=== PATIENT | female | born 2000 | race Hispanic/Latino ===

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

== ENCOUNTER 2019-03-04 20:04 | Emergency (ER) | payer OTHER ==
--- OUTSIDE RECORDS SUMMARY | 2019-03-04 20:12 | XMS REPORT | Continuity of Care Document ---
:2000 Author Organization Interface Problems Problem Status Onset Classification Date Comments Source Date Reported PELVIS FX Active [address] Hernia repair Resolved Problem 04/10/2016 [facility] FRACTURE OF Active [facility] UNSPECIFIED Medical PART OF BODY OF [place] Medications Medication Details Route Status Patient Ordering Order Source Instructions Provider Date Acetaminophen 1 tab, PO, Q6H, Active 04/07[facility] 325 MG / PRN Pain Score 2015 Medical Hydrocodone 6-10, # 40 tab, [place] Bitartrate 7.5 0 Refill(s) MG Oral Tablet [[place] 7.5/325] POLYETHYLENE 17 gm, PO, No Longer 04/07[facility] GLYCOL 3350 142 Daily, # 255 Active 2015 Medical MG/ML Oral gm, 0 Refill(s) Center Solution [Miralax] 0.4 ML 40 mg, SUB-Q, Active 04/07[facility] Enoxaparin Daily, X 7 day, 2015 Medical sodium 100 # 7 ea, 0 Center MG/ML Prefilled Refill(s) Syringe [Lovenox] Docusate Sodium 50 mg, 1 cap, No Longer 04/07[facility] 50 MG Oral Route: PO, Drug Active 2015 Medical Capsule form: CAP, BID, Center [Colace] Dosing Weight 53.7, kg, Start date: 04/06/16 21:00:00 CDT, Duration: 30 day, Stop date: 05/06/16 9:00:00 CDT, Pediatric DosingNotes: (Same as: Colace) (Do Not Crush) Flexeril 5 mg, 0.5 tab, No Longer 04/06[facility] Route: PO, Drug Active 2015 Medical form: TAB, BID, Center Dosing Weight 53.7, kg, Start date: 04/06/16 15:00:00 CDT, Duration: 30 day, Stop date: 05/06/16 9:00:00 CDTNotes: (Same As: Flexeril) Lovenox 40 mg, 0.4 mL, No Longer 07/19[facility] Route: SUB-Q, Active 2015 Medical Drug form: INJ, Center [id number], Dosing Weight 53.7, kg, Start date: 04/06/16 15:00:00 CDT, Duration: 30 day, Stop date: 05/05/16 15:00:00 CDT, > 45 kg; Prophylaxis dose; Pediatric DosingNotes: (Same as: Lovenox) Acetaminophen 1 tab, Route: No Longer [place] 325 MG / PO, Drug Form: Active 2016 Medical Hydrocodone TAB, Dosing Center Bitartrate 7.5 Weight 53.7, MG Oral Tablet kg, Q4H, PRN [[place] 7.5/325] Pain Score 4-6, Start date: 04/06/16 13:48:00 CDT, Duration: 30 day, Stop date: 05/06/16 13:47:00 CDT, > 38 kg; Pediatric DosingNotes: Same as [place] 325-7.5mg Do not exceed 4gm/day of acetaminophen. Morphine 2 mg, 1 mL, Inactive [place] Route: IV, Drug 2015 Medical form: INJ, Center ONCE, Dosing Weight 53.7, kg, PRN Pain Score 7-10, Start date: 04/05/16 1:18:00 CDT, Stop date: 05/05/16 1:17:00 CDT, > 20 kg; Pediatric DosingNotes: (Same as:MORPhine Sulfate) Morphine 2 mg, Route: Inactive [facility] IV, Drug form: 2015 Medical INJ, [...] Acetaminophen 650 mg, 65 mL, No Longer [facility] 10 MG/ML Route: IV, Drug Active [...] + KCL 1,000 mL, Rate: No Longer [place] 20mEq/L 1000ml 94 ml/hr, Active 2015 Medical (Premix) 1,000 Infuse over: Center mL 10.6 hr, Route: IV, Dosing Weight 53.7 kg, Total Volume: 1,000, Start date: 04/04/16 23:17:00 CDT, Duration: 30 day, Stop date: 05/04/16 23:16:00 CDTNotes: PREMIX IV - Do Not Alter WASTE: F/P - Sink; E - [employer]ash [employer] Tylenol 650 mg, 65 mL, Inactive [facility] Route: IV, Drug 2015 Medical form: INJ, Q6H, Center Dosing Weight 53.7, kg, PRN Pain 1-3/Temp > 100.4 F, Start date: 04/04/16 23:16:00 CDT, Duration: 30 day, Stop date: 05/04/16 23:15:00 CDTNotes: Infuse over 15 minutes Do not exceed 4gm/day of acetaminophen MEDICATION WASTE Product Size: 1000 mg Product Wasted: ___ mg Morphine 2 mg, 1 mL, Inactive [facility] Route: IVP, 2015 Medical Drug form: INJ, Center ONCE, Dosing Weight 53.7, kg, Priority: STAT, Start date: 04/04/16 17:16:00 CDT, Stop date: 04/04/16 17:16:00 CDTNotes: (Same as:MORPhine Sulfate) Morphine 1 mg, 0.5 mL, Inactive [facility] Route: IV, Drug 2015 Medical form: INJ, Center ONCE, Dosing Weight 53.7, kg, Start date: 04/04/16 14:57:00 CDT, Stop date: 04/04/16 14:57:00 CDTNotes: (Same as:MORPhine Sulfate) Morphine 1 mg, 0.5 mL, Inactive [place] Route: IV, Drug 2015 Medical form: INJ, Center ONCE, Dosing Weight 53.7, kg, Start date: 04/04/16 10:47:00 CDT, Stop date: 04/04/16 10:47:00 CDTNotes: (Same as:MORPhine Sulfate) Sodium Chloride 1,000 mL, 1000 Inactive [place] 0.154 MEQ/ML ml/hr, Infuse 2015 Medical Injectable Over: 1 hr, [place] Solution Route: IV, 1,000, Drug form: INJ, [...] 3 EXAM: XR PELVIS 3 VIEWS 04/06 [facility] views DX views - [facility] This report was dictated by a Laser Engineer/Fellow. I have personally reviewed the images as [...] # 0.7 K/CMM 0.0 - 0.8 04/05 [facility] HEMATOLOGY Eosinophils 0.1 K/CMM 0.0 - 0.5 04/05 [place] /2015 [facility] HEMATOLOGY Lymphocytes 1.5 K/CMM 1.0 - 5.5 04/05 [facility] HEMATOLOGY Eosinophils 0.8 % 0.0 - 4.0 04/05 [facility] HEMATOLOGY Monocytes 8.6 % 2.0 - 12.0 04/05 [facility] HEMATOLOGY Segs-Bands # 5.8 K/CMM 1.5 - 8.1 04/05 [facility] HEMATOLOGY Basophils 0.4 % 0.0 - 1.0 04/05 [facility] HEMATOLOGY Segs 71.9 % 45.0 - 04/05 [facility] 75.0 [facility] HEMATOLOGY Lymphocytes 18.3 % 20.0 - 04/05 [place] 40.0 [facility] HEMATOLOGY MPV 10.2 fL 7.4 - 10.4 04/05 [facility] HEMATOLOGY Platelet 147 K/CMM 133 - 450 04/05 [facility] HEMATOLOGY RDW 12.0 % 11.5 - 04/05 [place] 14.5 [facility] HEMATOLOGY MCV 90.4 fL 80.0 - 04/05 [facility] 98.0 [facility] HEMATOLOGY MCH 31.2 pg 27.0 - 04/05 [facility] 31.0 [facility] HEMATOLOGY MCHC 34.5 g/dL 32.0 - 04/05 [place] 36.0 [facility] HEMATOLOGY Hgb 10.9 g/dL 12.0 - 04/05 [place] 16.0 [facility] HEMATOLOGY Hct 31.5 % 36.0 - 04/05 [facility] 48.0 2016 [facility] HEMATOLOGY RBC 3.49 M/CMM 4.20 - 04/05 [place] 5.40 [facility] HEMATOLOGY WBC 8.0 K/CMM 3.7 - 10.4 04/05 [facility] URINE CHEM U Preg Negative Negative 04/05 Medical (04/05/16 1:27 AM) Center CHEM PANEL eGFR 84 04/05 Result [facility] mL/min/1.73 /2016 Comment: The Medical m2 eGFR is Center calculated using the modified [place] equation 0.413 x Height (cm) /Serum Creatinine (mg/dL). CHEM PANEL Creatinine 0.77 mg/dL 0.50 - 04/05 [facility] Lvl 1.40 /2015 [facility] CHEM PANEL Sodium Lvl 136 meq/L 135 - 145 04/05 [facility] CHEM PANEL BUN 13 mg/dL 7 - 22 04/05 [facility] CHEM PANEL Potassium 4.0 meq/L 3.5 - 5.1 04/05 [facility] Lvl [facility] CHEM PANEL CO2 20 meq/L 24 - 32 04/05 [facility] CHEM PANEL Calcium Lvl 8.6 mg/dL 8.5 - 10.5 04/05 [facility] CHEM PANEL Chloride Lvl 103 meq/L 95 - 109 04/05 [facility] CHEM PANEL Glucose Lvl 87 mg/dL 70 - 99 04/05 [facility] CHEM PANEL AGAP 17.0 meq/L 10.0 - 04/05 [place] 20.0 [facility] HEMATOLOGY PTT 31.9 s 22.9 - 04/05 [place] 35.8 /2015 [facility] HEMATOLOGY INR 1.11 0.85 - 04/05 [place] 1. [facility] HEMATOLOGY PT 14.6 s 12.0 - 04/05 [place] 14.7 [facility] BLOOD BANK ABO/Rh A POS 04/05 [facility] RESULTS [facility] BLOOD BANK Antibody Negative 04/05 [facility] RESULTS Scr [facility] (04/04/16 10:06 PM) [place] HEMATOLOGY Segs-Bands # 6.1 K/CMM 1.5 - 8.1 04/04 [facility] HEMATOLOGY Lymphocytes 1.4 K/CMM 1.0 - 5.5 04/04 [place] # /2015 [facility] HEMATOLOGY Eosinophils 0.4 % 0.0 - 4.0 04/04 [facility] HEMATOLOGY Basophils 0.2 % 0.0 - 1.0 04/04 [facility] HEMATOLOGY Monocytes # 0.5 K/CMM 0.0 - 0.8 04/04 /2015 [facility] HEMATOLOGY Segs 75.5 % 45.0 - 04/04 [place] 75.0 [facility] HEMATOLOGY Lymphocytes 17.8 % 20.0 - 04/04 [facility] [place] 40.0 /2015 [facility] HEMATOLOGY Monocytes 6.1 % 2.0 - 12.0 04/04 [facility] HEMATOLOGY Hgb 11.3 g/dL 12.0 - 04/04 16.0 [facility] HEMATOLOGY WBC 8.1 K/CMM 3.7 - 10.4 04/04 [facility] HEMATOLOGY RBC 3.74 M/CMM 4.20 - 04/04 [place] 5.40 /2015 [facility] HEMATOLOGY Hct 34.3 % 36.0 - 04/04 [place] 48.0 /2015 [facility] HEMATOLOGY MCV 91.8 fL 80.0 - 04/04 [place] 98.0 /2015 [facility] HEMATOLOGY RDW 12.5 % 11.5 - 04/04 14.5 /2015 [facility] HEMATOLOGY MCH 30.3 pg 27.0 - 04/04 31.0 [facility] HEMATOLOGY MCHC 33.0 g/dL 32.0 - 04/04 36.0 [facility] HEMATOLOGY MPV 9.4 fL 7.4 - 10.4 04/04 [facility] HEMATOLOGY Platelet 168 K/CMM 133 - 450 04/04 /2015 [facility] Brain-Outsi Brain-Outsid EXAM: CT BRAIN WITHOUT CONTRAST 04/04 [facility] de Consult e Consult [facility] DATE: 04/04/2016 10:01 AM CDT Read [...] CERVICAL SPINE CT WITHOUT CONTRAST-OUTSIDE CONSULT 04/04 [facility] de Consult e Consult [facility] DATE: 04/04/2016, 0307 hours Read by: iNcole Sanz MD Dictated Date/time: 04/04/16 11:35 Electronically Signed by: Nicole Sanz MD 04/04/16 11:41 FINAL REPORT INDICATION: Neck pain after trauma COMPARISON: None TECHNIQUE: Helical images were obtained through the cervical spine at 2 mm collimation. Sagittal and coronal reformatting was performed. Intravenous contrast was not used. The study was performed at [facility] and is submitted for second interpretation. DISCUSSION: [...] Torso-Outsid EXAM: CT CHEST WITH CONTRAST 04/04 [facility] Consult e Consult CT /2015 - [facility] CT EXAM: CT ABDOMEN AND PELVIS WITH [...] Comments Source Systolic (mm Hg) 107 04/07/2016 [facility] Diastolic (mm Hg) 64 04/07/2016 [facility] Temperature Oral (F) 97.4 F 04/07/2016 [facility] Respitory Rate 20 04/07/2016 [facility] Heart Rate 64 04/07/2016 [facility] Systolic (mm Hg) 106 04/07/2016 [facility] Diastolic (mm Hg) 60 04/07/2016 [facility] Temperature Oral (F) 97.8 F 04/07/2016 [facility] Respitory Rate 20 04/07/2016 [facility] Heart Rate 72 04/07/2016 [facility] Systolic (mm Hg) 96 04/07/2016 [facility] Diastolic (mm Hg) 49 04/07/2016 [facility] Respitory Rate 20 04/07/2016 [facility] Heart Rate 68 04/07/2016 [facility] Temperature Oral (F) 98.5 F 04/07/2016 [facility] Weight 53.7 04/05/2016 [facility] BMI Calculated 21.65 04/05/2016 [facility] Height 157.48 cm 04/05/2016 [facility] Height 157.4 cm 04/05/2016 [facility] BMI Calculated 21.65 04/04/2016 [facility] Weight 53.7 04/04/2016 [facility] Height 157.48 cm 04/04/2016 [facility] BMI Calculated 20.16 04/04/2016 [facility] Weight 50 04/04/2016 [facility] Encounters Location Location Encounter Encounter Reason Attending ADM DC Status Source Details Type Number For Provider Date Date Visit [facility] [id number] [facility] 04/04 04/07 [facility] /2015 [facility] Procedures Procedure Code Date Perfomer Comments Source Hernia repair [id number] [facility]
--- OUTSIDE RECORDS SUMMARY | 2019-03-04 20:13 | XMS REPORT ---
:2000 [facility] [address] [place] [address] Dr. Lowe [address] [place] [id number] Care Team Providers Name Role Phone Unavailable Unavailable Unavailable Problems This patient has no known problems. Allergies, Adverse Reactions, Alerts This patient has no known allergies or adverse reactions. Medications This patient has no known medications.
[2019-03-04 20:59] LABS: Urine Bacteria >50 /HPF (<20); Urine Culture Reflex Order REFLEXED; Urine RBC <5 /HPF (NONE SEEN)
--- NOTE | 2019-03-04 21:01 | ER ---
Nurse's Notes [facility] Name: Umu Nieto Age: 18 yrs Sex: Female : 2000 Arrival Date: 03/04/2019 Time: 20:10 Bed 17 Private MD: Diagnosis: ED Course: 03/04 20:08 [facility] snw 20:08 Juan C Mackey MD is Attending Physician. snw 20:10 Patient arrived in ED. am2 20:23 Dasha Dolan is Primary Nurse. cc3 Administered Medications: No medications were administered Outcome: 20:59 Eloped from patient exam room, before seeing physician Time discovered patient gone: ca1 March 04, 2019 at 20:59 21:00 Patient left the ED. ca1 Addendum: 03/07/2019 16:34 Addendum: Culture Results: Positive urine culture. PT ELOPED. s s Signatures: Chantelle Teran FNP-C FNP-Csnw Barbie Robbins, ÁNGEL RN Lien Valentine am2 Dasha Dolan cc3 Laura Leung RN RN ca1
[2019-03-04] MEDS ORDERED: NA CHLORIDE 0.9% 1,000 ML ONE (21:35)
[2019-03-04 21:51] LABS: Absolute Lymphocytes (CBC) 0.9 K/uL (0.7-4.9); Absolute Monocytes 0.7 K/uL (0.1-1.3); Absolute Neutrophil 8.6 K/uL (1.8-8.0); Basophils % 0.3 % (0-1.3); Eosinophils % 0.2 % (0-4.4); Hematocrit 26.8 % (36.0-45.0); Lymphocytes % 8.5 % (15.3-44.8); MPV 10.5 fL (7.6-11.3); Monocytes % 6.9 % (3.3-12.3); RBC Red Blood Cell Count 2.76 M/uL (3.86-4.86)
[2019-03-04 22:34] LABS: BUN Blood Urea Nitrogen 5 mg/dL (7-18); Bicarbonate 23 mmol/L (21-32); Glucose Level 97 mg/dL (74-106); Potassium 3.5 mmol/L (3.5-5.1); Sodium Level 138 mmol/L (136-145)
[2019-03-04] MEDS ORDERED: CEFTRIAXONE/SWI 1gm 1 GM/10 ML SYR ONE (22:51)
[2019-03-04] MEDS ORDERED: ACETAMINOPHEN 500 MG TAB ONE (23:00)
--- NOTE | 2019-03-06 00:31 | EDPHYS ---
Physician Documentation [facility] Name: Umu Nieto Age: 18 yrs Sex: Female : 2000 Arrival Date: 03/04/2019 Time: 20:10 Bed 17 Private MD: ED Physician Juan C Mackey MDM: 03/04 20:54 [address] [facility] 03/05 00:20 ED course: Duplicated chart. Pt seen and evaluated by me under a different number. [facility] 03/04 20:09 Order name: Urine Culture [facility] 03/04 20:09 Order name: Urine Microscopic Only; Complete Time: 23:47 [facility] 03/04 20:09 Order name: Urine Test (obtain specimen) [facility] 03/04 20:09 Order name: Urine Dipstick-Ancillary (obtain specimen) [facility] Administered Medications: No medications were administered Disposition: 07:28 Co-signature as Attending Physician, Juan C Mackey MD I agree with the assessment and [facility] plan of care. Disposition: 03/04/19 21:00 Patient left the facility before being seen by provider. - Patient left due to feeling better. Signatures: Dispatcher [employer] EDMS Juan C Mackey MD MD cha Therrien, Shelly, ENGINE DYNAMOMETER TESTER-C ENGINE DYNAMOMETER TESTER-Csnw Laura Leung RN RN ca1
== END 2019-03-04 21:00 | disposition left against medical advice (07) ==
LOC: ER 20:04
DX: Z53.21 Procedure and treatment not carried out due to patient leaving prior to being seen by health care provider (principal)
CPT/HCPCS: 36415; 80048; 81015; 85025; 87040; 87077; 87086; 87088; 87186; J0696; J7030

== ENCOUNTER 2019-03-04 21:39 | Emergency (ER) | payer OTHER ==
--- OUTSIDE RECORDS SUMMARY | 2019-03-04 21:42 | XMS REPORT | Continuity of Care Document ---
:2000 Author Organization Interface Problems Problem Status Onset Classification Date Comments Source Date Reported PELVIS FX Active [address] Hernia repair Resolved Problem 04/10/2016 [facility] FRACTURE OF Active [facility] UNSPECIFIED Medical PART OF BODY OF [place] Medications Medication Details Route Status Patient Ordering Order Source Instructions Provider Date Acetaminophen 1 tab, PO, Q6H, Active 04/07[facility] 325 MG / PRN Pain Score 2015 Medical Hydrocodone 6-10, # 40 tab, [place] Bitartrate 7.5 0 Refill(s) MG Oral Tablet [[place] 7.5/325] POLYETHYLENE 17 gm, PO, No Longer 04/07[facility] GLYCOL 3350 142 Daily, # 255 Active 2015 Medical MG/ML Oral gm, 0 Refill(s) Center Solution [Miralax] 0.4 ML 40 mg, SUB-Q, Active 04/07[facility] Enoxaparin Daily, X 7 day, 2015 Medical sodium 100 # 7 ea, 0 Center MG/ML Prefilled Refill(s) Syringe [Lovenox] Docusate Sodium 50 mg, 1 cap, No Longer 04/07[facility] 50 MG Oral Route: PO, Drug Active 2015 Medical Capsule form: CAP, BID, Center [Colace] Dosing Weight 53.7, kg, Start date: 04/06/16 21:00:00 CDT, Duration: 30 day, Stop date: 05/06/16 9:00:00 CDT, Pediatric DosingNotes: (Same as: Colace) (Do Not Crush) Flexeril 5 mg, 0.5 tab, No Longer 04/06[facility] Route: PO, Drug Active 2015 Medical form: TAB, BID, Center Dosing Weight 53.7, kg, Start date: 04/06/16 15:00:00 CDT, Duration: 30 day, Stop date: 05/06/16 9:00:00 CDTNotes: (Same As: Flexeril) Lovenox 40 mg, 0.4 mL, No Longer 07/19[facility] Route: SUB-Q, Active 2015 Medical Drug form: INJ, Center [id number], Dosing Weight 53.7, kg, Start date: 04/06/16 15:00:00 CDT, Duration: 30 day, Stop date: 05/05/16 15:00:00 CDT, > 45 kg; Prophylaxis dose; Pediatric DosingNotes: (Same as: Lovenox) Acetaminophen 1 tab, Route: No Longer [place] 325 MG / PO, Drug Form: Active 2016 Medical Hydrocodone TAB, Dosing Center Bitartrate 7.5 Weight 53.7, MG Oral Tablet kg, Q4H, PRN [[place] 7.5/325] Pain Score 4-6, Start date: 04/06/16 13:48:00 CDT, Duration: 30 day, Stop date: 05/06/16 13:47:00 CDT, > 38 kg; Pediatric DosingNotes: Same as [place] 325-7.5mg Do not exceed 4gm/day of acetaminophen. Morphine 2 mg, 1 mL, Inactive [place] Route: IV, Drug 2015 Medical form: INJ, Center ONCE, Dosing Weight 53.7, kg, PRN Pain Score 7-10, Start date: 04/05/16 1:18:00 CDT, Stop date: 05/05/16 1:17:00 CDT, > 20 kg; Pediatric DosingNotes: (Same as:MORPhine Sulfate) Morphine 2 mg, Route: Inactive [facility] IV, Drug form: 2015 Medical INJ, [...] Acetaminophen 650 mg, 65 mL, No Longer [facility] 10 MG/ML Route: IV, Drug Active [...] Bin Tylenol 650 mg, 65 mL, Inactive [facility] Route: IV, Drug 2015 Medical form: INJ, Q6H, Center Dosing Weight 53.7, kg, PRN Pain 1-3/Temp > 100.4 F, Start date: 04/04/16 23:16:00 CDT, Duration: 30 day, Stop date: 05/04/16 23:15:00 CDTNotes: Infuse over 15 minutes Do not exceed 4gm/day of acetaminophen MEDICATION WASTE Product Size: 1000 mg Product Wasted: ___ mg Morphine 2 mg, 1 mL, Inactive [facility] Route: IVP, 2015 Medical Drug form: INJ, Center ONCE, Dosing Weight 53.7, kg, Priority: STAT, Start date: 04/04/16 17:16:00 CDT, Stop date: 04/04/16 17:16:00 CDTNotes: (Same as:MORPhine Sulfate) Morphine 1 mg, 0.5 mL, Inactive [facility] Route: IV, Drug 2015 Medical form: [...] Infuse 2015 Medical Injectable Over: 1 hr, [place] Solution Route: IV, 1,000, Drug form: INJ, [...] 3 EXAM: XR PELVIS 3 VIEWS 04/06 [facility] views DX views - [facility] This report was dictated by a Travel Writer/Fellow. I have personally reviewed the images as [...] # 0.7 K/CMM 0.0 - 0.8 04/05 [facility] HEMATOLOGY Eosinophils 0.1 K/CMM 0.0 - 0.5 04/05 [place] /2015 [facility] HEMATOLOGY Lymphocytes 1.5 K/CMM 1.0 - 5.5 04/05 [facility] HEMATOLOGY Eosinophils 0.8 % 0.0 - 4.0 04/05 [facility] HEMATOLOGY Monocytes 8.6 % 2.0 - 12.0 04/05 [facility] HEMATOLOGY Segs-Bands # 5.8 K/CMM 1.5 - 8.1 04/05 [facility] HEMATOLOGY Basophils 0.4 % 0.0 - 1.0 04/05 [facility] HEMATOLOGY Segs 71.9 % 45.0 - 04/05 [facility] 75.0 [facility] HEMATOLOGY Lymphocytes 18.3 % 20.0 - 04/05 [place] 40.0 [facility] HEMATOLOGY MPV 10.2 fL 7.4 - 10.4 04/05 [facility] HEMATOLOGY Platelet 147 K/CMM 133 - 450 04/05 [facility] HEMATOLOGY RDW 12.0 % 11.5 - 04/05 [place] 14.5 [facility] HEMATOLOGY MCV 90.4 fL 80.0 - 04/05 [facility] 98.0 [facility] HEMATOLOGY MCH 31.2 pg 27.0 - 04/05 [facility] 31.0 [facility] HEMATOLOGY MCHC 34.5 g/dL 32.0 - 04/05 [place] 36.0 [facility] HEMATOLOGY Hgb 10.9 g/dL 12.0 - 04/05 [place] 16.0 [facility] HEMATOLOGY Hct 31.5 % 36.0 - 04/05 [facility] 48.0 2016 [facility] HEMATOLOGY RBC 3.49 M/CMM 4.20 - 04/05 [place] 5.40 [facility] HEMATOLOGY WBC 8.0 K/CMM 3.7 - 10.4 04/05 [facility] URINE CHEM U Preg Negative Negative 04/05 Medical (04/05/16 1:27 AM) Center CHEM PANEL eGFR 84 04/05 Result [facility] mL/min/1.73 /2016 Comment: The Medical m2 eGFR is Center calculated using the modified [place] equation 0.413 x Height (cm) /Serum Creatinine (mg/dL). CHEM PANEL Creatinine 0.77 mg/dL 0.50 - 04/05 [facility] Lvl 1.40 /2015 [facility] CHEM PANEL Sodium Lvl 136 meq/L 135 - 145 04/05 [facility] CHEM PANEL BUN 13 mg/dL 7 - 22 04/05 [facility] CHEM PANEL Potassium 4.0 meq/L 3.5 - 5.1 04/05 [facility] Lvl [facility] CHEM PANEL CO2 20 meq/L 24 - 32 04/05 [facility] CHEM PANEL Calcium Lvl 8.6 mg/dL 8.5 - 10.5 04/05 [facility] CHEM PANEL Chloride Lvl 103 meq/L 95 - 109 04/05 [facility] CHEM PANEL Glucose Lvl 87 mg/dL 70 - 99 04/05 [facility] CHEM PANEL AGAP 17.0 meq/L 10.0 - 04/05 [place] 20.0 [facility] HEMATOLOGY PTT 31.9 s 22.9 - 04/05 [place] 35.8 /2015 [facility] HEMATOLOGY INR 1.11 0.85 - 04/05 [place] 1. [facility] HEMATOLOGY PT 14.6 s 12.0 - 04/05 [place] 14.7 [facility] BLOOD BANK ABO/Rh A POS 04/05 [facility] RESULTS [facility] BLOOD BANK Antibody Negative 04/05 [facility] RESULTS Scr [facility] (04/04/16 10:06 PM) [place] HEMATOLOGY Segs-Bands # 6.1 K/CMM 1.5 - 8.1 04/04 [facility] HEMATOLOGY Lymphocytes 1.4 K/CMM 1.0 - 5.5 04/04 [place] # /2015 [facility] HEMATOLOGY Eosinophils 0.4 % 0.0 - 4.0 04/04 [facility] HEMATOLOGY Basophils 0.2 % 0.0 - 1.0 04/04 [facility] HEMATOLOGY Monocytes # 0.5 K/CMM 0.0 - 0.8 04/04 /2015 [facility] HEMATOLOGY Segs 75.5 % 45.0 - 04/04 [place] 75.0 [facility] HEMATOLOGY Lymphocytes 17.8 % 20.0 - 04/04 [facility] [place] 40.0 /2015 [facility] HEMATOLOGY Monocytes 6.1 % 2.0 - 12.0 04/04 [facility] HEMATOLOGY Hgb 11.3 g/dL 12.0 - 04/04 16.0 [facility] HEMATOLOGY WBC 8.1 K/CMM 3.7 - 10.4 04/04 [facility] HEMATOLOGY RBC 3.74 M/CMM 4.20 - 04/04 [place] 5.40 /2015 [facility] HEMATOLOGY Hct 34.3 % 36.0 - 04/04 [place] 48.0 /2015 [facility] HEMATOLOGY MCV 91.8 fL 80.0 - 04/04 [place] 98.0 /2015 [facility] HEMATOLOGY RDW 12.5 % 11.5 - 04/04 14.5 /2015 [facility] HEMATOLOGY MCH 30.3 pg 27.0 - 04/04 31.0 [facility] HEMATOLOGY MCHC 33.0 g/dL 32.0 - 04/04 36.0 [facility] HEMATOLOGY MPV 9.4 fL 7.4 - 10.4 04/04 [facility] HEMATOLOGY Platelet 168 K/CMM 133 - 450 04/04 /2015 [facility] Brain-Outsi Brain-Outsid EXAM: CT BRAIN WITHOUT CONTRAST 04/04 [facility] de Consult e Consult [facility] DATE: 04/04/2016 10:01 AM CDT Read [...] CERVICAL SPINE CT WITHOUT CONTRAST-OUTSIDE CONSULT 04/04 [facility] de Consult e Consult [facility] DATE: 04/04/2016, 0307 hours Read by: Nicole Sanz MD Dictated Date/time: 04/04/16 11:35 Electronically Signed by: Nicole Sanz MD 04/04/16 11:41 FINAL REPORT INDICATION: Neck pain after trauma COMPARISON: None TECHNIQUE: Helical images were obtained through the cervical spine at 2 mm collimation. Sagittal and coronal reformatting was performed. Intravenous contrast was not used. The study was performed at [facility] and is submitted for second interpretation. DISCUSSION: [...] Torso-Outsid EXAM: CT CHEST WITH CONTRAST 04/04 [facility] Consult e Consult CT /2015 - [facility] CT EXAM: CT ABDOMEN AND [...] Comments Source Systolic (mm Hg) 107 04/07/2016 [facility] Diastolic (mm Hg) 64 04/07/2016 [facility] Temperature Oral (F) 97.4 F 04/07/2016 [facility] Respitory Rate 20 04/07/2016 [facility] Heart Rate 64 04/07/2016 [facility] Systolic (mm Hg) 106 04/07/2016 [facility] Diastolic (mm Hg) 60 04/07/2016 [facility] Temperature Oral (F) 97.8 F 04/07/2016 [facility] Respitory Rate 20 04/07/2016 [facility] Heart Rate 72 04/07/2016 [facility] Systolic (mm Hg) 96 04/07/2016 [facility] Diastolic (mm Hg) 49 04/07/2016 [facility] Respitory Rate 20 04/07/2016 [facility] Heart Rate 68 04/07/2016 [facility] Temperature Oral (F) 98.5 F 04/07/2016 [facility] Weight 53.7 04/05/2016 [facility] BMI Calculated 21.65 04/05/2016 [facility] Height 157.48 cm 04/05/2016 [facility] Height 157.4 cm 04/05/2016 [facility] BMI Calculated 21.65 04/04/2016 [facility] Weight 53.7 04/04/2016 [facility] Height 157.48 cm 04/04/2016 [facility] BMI Calculated 20.16 04/04/2016 [facility] Weight 50 04/04/2016 [facility] Encounters Location Location Encounter Encounter Reason Attending ADM DC Status Source Details Type Number For Provider Date Date Visit [facility] [id number] Pin Shah 04/04 04/07 [facility] [place] [facility] [place] /2015 [facility] [place] Procedures Procedure Code Date Perfomer Comments Source Hernia repair [id number] [facility]
--- OUTSIDE RECORDS SUMMARY | 2019-03-04 21:43 | XMS REPORT ---
:2000 Author [facility] Address [address] [place] [address] Dr. Lowe [address] [place] [id number] Care Team Providers Name Role Phone Unavailable Unavailable Unavailable Problems This patient has no known problems. Allergies, Adverse Reactions, Alerts This patient has no known allergies or adverse reactions. Medications This patient has no known medications.
[2019-03-04 21:48] LABS: Urine Blood TRACE (NEG); Urine Glucose NEGATIVE (NEG); Urine Protein 1+ (NEG); Urine pH 8.5 (5.0-7.0)
--- NOTE | 2019-03-05 00:08 | ER ---
Nurse's Notes [facility] Name: Umu Nieto Age: 18 yrs Sex: Female : 2000 Arrival Date: 03/04/2019 Time: 21:01 Bed 17 Private MD: Diagnosis: Urinary tract infection, site not specified; state Presentation: 03/04 21:07 Presenting complaint: Patient states: I have back pain for days now and fever of 101.2F ca1 last night. Fever has been going on for days but mostly in the 100sF. I have been taking Tylenol for fever. And I am x 27wks. Presenting complaint:. Transition of care: patient was not received from another setting of care. Onset of symptoms. Risk Assessment: Do you want to hurt yourself or someone else? Patient reports no desire to harm self or others. Initial Sepsis Screen: Does the patient meet any 2 criteria? No. Patient's initial sepsis screen is negative. Does the patient have a suspected source of infection? No. Patient's initial sepsis screen is negative. Care prior to arrival: None. 21:07 Method Of Arrival: Ambulatory ca1 21:07 Acuity: SIMON 3 ca1 Triage Assessment: 21:10 General: Appears in no apparent distress. comfortable, Behavior is calm, cooperative, ca1 appropriate for age, Reports feeling ill for 2-3 days. Pain: Complains of pain in posterior aspect of right lateral abdomen Pain radiates to epigastric area Pain currently is 7 out of 10 on a pain scale. Pain began 1 day ago. EENT: No deficits noted. No signs and/or symptoms were reported regarding the EENT system. Neuro: Level of Consciousness is awake, alert, obeys commands, Oriented to person, place, time, situation. Cardiovascular: Heart tones S1 S2 present Capillary refill < 3 seconds Patient's skin is warm and dry. Respiratory: Airway is patent Respiratory effort is even, unlabored, Respiratory pattern is regular, symmetrical, Breath sounds are clear bilaterally. GI: Abdomen is round non-distended, Bowel sounds present X 4 quads. Abd is soft and non tender X 4 quads. : No deficits noted. No signs and/or symptoms were reported regarding the genitourinary system. Derm: Skin is intact, is healthy with good turgor, Skin is pink, warm \T\ dry. Musculoskeletal: Circulation, motion, and sensation intact. Capillary refill < 3 seconds, Range of motion: intact in all extremities. CHILD CARE: 21:10 LMP 08/28/2018 ca1 Historical: - Allergies: 03/05 00:12 No Known Allergies; ca1 - Home Meds: 03/04 21:10 None [Active]; ca1 - PMHx: 21:10 broken pelvis; Hernia; miscarriage; ca1 - PSHx: 21:10 None; ca1 - Immunization history:: Flu vaccine is not up to date. - Social history:: Smoking status: Patient/guardian denies using tobacco. - Ebola Screening: : Patient negative for fever greater than or equal to 101.5 degrees Fahrenheit, and additional compatible Ebola Virus Disease symptoms Patient denies exposure to infectious person Patient denies travel to an Ebola-affected area in the 21 days before illness onset. Screenin:16 Abuse screen: Denies threats or abuse. Denies injuries from another. Nutritional ca1 screening: No deficits noted. Tuberculosis screening: No symptoms or risk factors identified. Fall Risk IV access (20 points). Assessment: 22:18 Reassessment: Patient appears in no apparent distress at this time. Patient and/or cc3 family updated on plan of care and expected duration. Pain level reassessed. Patient is alert, oriented x 3, equal unlabored respirations, skin warm/dry/pink. 23:25 Reassessment: Patient appears in no apparent distress at this time. Patient and/or cc3 family updated on plan of care and expected duration. Pain level reassessed. Patient is alert, oriented x 3, equal unlabored respirations, skin warm/dry/pink. 03/05 00:45 Reassessment: Patient appears in no apparent distress at this time. Patient and/or cc3 family updated on plan of care and expected duration. Pain level reassessed. Patient is alert, oriented x 3, equal unlabored respirations, skin warm/dry/pink. MICHAEL Lockhart discharged the patient home with prescription given. IV cannula removed and patient left ER vitally stable and ambulatory with her mother. Patient denies pain at this time. Patient states feeling better. Patient states symptoms have improved. Vital Signs: 03/04 21:10 BP 110 / 55; Pulse 105; Resp 16 S; Temp 100.5(O); Pulse Ox 100% on R/A; Weight 58.06 ca1 kg; Height 5 ft. 2 in. (157.48 cm); Pain 7/10; 22:45 BP 106 / 52; Pulse 90; Resp 16 S; Pulse Ox 100% on R/A; cc3 23:24 BP 104 / 60; Pulse 86; Resp 17 S; Pulse Ox 100% on R/A; cc3 03/05 00:21 BP 107 / 63; Pulse 82; Resp 16 S; Pulse Ox 100% on R/A; cc3 03/04 21:10 Body Mass Index 23.41 (58.06 kg, 157.48 cm) ca1 Vitals: 03/04 22:49 Heart Tones 156. ca1 ED Course: 21:01 Patient arrived in ED. ca1 21:02 Laura Leung, ÁNGEL is Primary Nurse. ca1 21:05 Chantelle Teran FNP-C is PHCP. snw 21:05 Juan C Mackey MD is Attending Physician. snw 21:09 Triage completed. ca1 21:10 Arm band placed on right wrist. ca1 21:16 Patient has correct armband on for positive identification. Placed in gown. Bed in low ca1 position. Call light in reach. Side rails up X 1. Pulse ox on. NIBP on. Warm blanket given. 21:16 No provider procedures requiring assistance completed. ca1 21:30 Inserted saline lock: 20 gauge in right antecubital area, using aseptic technique. ca1 Blood collected. 21:30 First set of blood cultures drawn by me. ca1 06 00:42 IV discontinued, intact, bleeding controlled, No redness/swelling at site. Pressure cc3 dressing applied. Administered Medications: 03/04 21:30 Drug: NS 0.9% 1000 ml Route: IV; Rate: 1 bolus; Site: right antecubital; ca1 22:45 Follow up: Response: No adverse reaction; IV Status: Completed infusion; IV Intake: cc3 1000ml 22:30 Drug: Rocephin 1 grams Route: IV; Rate: calculated rate; Site: right antecubital; cc3 22:45 Follow up: Response: No adverse reaction; IV Status: Completed infusion; IV Intake: [id number] 22:40 Drug: Tylenol 1000 mg Route: PO; cc3 23:30 Follow up: Response: No adverse reaction; Pain is decreased cc3 03/05 00:20 Drug: fentaNYL (PF) 25 mcg Route: IVP; Site: right antecubital; cc3 00:40 Follow up: Response: No adverse reaction; Pain is decreased cc3 Intake: 03/04 22:45 IV: 10ml; Total: 10ml. cc3 22:45 IV: 1000ml; Total: 1010ml. cc3 Outcome: 03/05 00:07 Discharge ordered by . snestiven 00:42 Patient left the ED. cc3 00:42 Discharged to home ambulatory, with family. cc3 00:42 Condition: stable 00:42 Discharge instructions given to patient, family, Instructed on discharge instructions, follow up and referral plans. medication usage, Demonstrated understanding of instructions, follow-up care, medications, Prescriptions given X 3. Signatures: Chantelle Teran, STOCK PARTS INSPECTOR-C STOCK PARTS INSPECTOR-Csnw Dasha Dolan cc3 Laura Leung RN RN ca1 Corrections: (The following items were deleted from the chart) 03/04 21:13 21:10 General: Appears in no apparent distress. comfortable, Behavior is calm, ca1 cooperative, appropriate for age, ca1 03/05 00:10 03/04 21:10 Allergies: No Known Allergies; ca1 ca1 03/05 00:12 00:10 Allergies: CEPHALOSPORINS; ca1 ca1
--- NOTE | 2019-03-05 00:08 | EDPHYS ---
Physician Documentation [facility] Name: Umu Nieto Age: 18 yrs Sex: Female : 2000 Arrival Date: 03/04/2019 Time: 21:01 Bed 17 Private MD: ED Physician Juan C Mackey HPI: 03/04 22:02 This 18 yrs old Female presents to ER via Ambulatory with complaints of Fever. snw 22:02 The patient reports fever, that was measured at 101.5 degrees Fahrenheit. Onset: The snw symptoms/episode began/occurred suddenly, last night. Modifying factors: flank pain x 3 days, + IUP. Severity of symptoms: At their worst the symptoms were moderate in the emergency department the symptoms are unchanged. The patient has not experienced similar symptoms in the past. It is unknown whether or not the patient has recently seen a physician. + movement, negative vaginal bleeding/discharge. 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 - Social history:: Smoking status: Patient/guardian denies using tobacco. - Ebola Screening: : Patient negative for fever greater than or equal to 101.5 degrees Fahrenheit, and additional compatible Ebola Virus Disease symptoms Patient denies exposure to infectious person Patient denies travel to an Ebola-affected area in the 21 days before illness onset. ROS: 22:02 Eyes: Negative for injury, pain, redness, and discharge, ENT: Negative for injury, snw pain, and discharge, Neck: Negative for injury, pain, and swelling, Cardiovascular: Negative for chest pain, palpitations, and edema, Respiratory: Negative for shortness of breath, cough, wheezing, and pleuritic chest pain, Abdomen/GI: Negative for abdominal pain, nausea, vomiting, diarrhea, and constipation. 22:02 MS/Extremity: Negative for injury and deformity, Skin: Negative for injury, rash, and discoloration, Neuro: Negative for headache, weakness, numbness, tingling, and seizure. 22:02 Constitutional: Positive for body aches, fatigue, fever, malaise. 22:02 Back: Positive for flank pain, on the right. 22:02 : Positive for urinary symptoms. Exam: 21:59 Constitutional: This is a well developed, well nourished patient who is awake, alert, snw and in no acute distress. Eyes: Pupils equal round and reactive to light, extra-ocular motions intact. Lids and lashes normal. Conjunctiva and sclera are non-icteric and not injected. Cornea within normal limits. Periorbital areas with no swelling, redness, or edema. ENT: Nares patent. No nasal discharge, no septal abnormalities noted. Tympanic membranes are normal and external auditory canals are clear. Oropharynx with no redness, swelling, or masses, exudates, or evidence of obstruction, uvula midline. Mucous membranes moist. Neck: Trachea midline, no thyromegaly or masses palpated, and no cervical lymphadenopathy. Supple, full range of motion without nuchal rigidity, or vertebral point tenderness. No Meningismus. Chest/axilla: Normal chest wall appearance and motion. Nontender with no deformity. No lesions are appreciated. Cardiovascular: Regular rate and rhythm with a normal S1 and S2. No gallops, murmurs, or rubs. Normal PMI, no JVD. No pulse deficits. Respiratory: Lungs have equal breath sounds bilaterally, clear to auscultation and percussion. No rales, rhonchi or wheezes noted. No increased work of breathing, no retractions or nasal flaring. Abdomen/GI: Soft, non-tender, with normal bowel sounds. + gravid. No distension or tympany. No guarding or rebound. No evidence of tenderness throughout. Back: No spinal tenderness. right costovertebral tenderness. Full range of motion. Skin: Warm, dry with normal turgor. Normal color with no rashes, no lesions, and no evidence of cellulitis. MS/ Extremity: Pulses equal, no cyanosis. Neurovascular intact. Full, normal range of motion. Neuro: Awake and alert, GCS 15, oriented to person, place, time, and situation. Cranial nerves II-XII grossly intact. Motor strength 5/5 in all extremities. Sensory grossly intact. Cerebellar exam normal. Normal gait. Vital Signs: 21:10 BP 110 / 55; Pulse 105; Resp 16 S; Temp 100.5(O); Pulse Ox 100% on R/A; Weight 58.06 ca1 kg; Height 5 ft. 2 in. (157.48 cm); Pain 7/10; 22:45 BP 106 / 52; Pulse 90; Resp 16 S; Pulse Ox 100% on R/A; cc3 23:24 BP 104 / 60; Pulse 86; Resp 17 S; Pulse Ox 100% on R/A; cc3 03/05 00:21 BP 107 / 63; Pulse 82; Resp 16 S; Pulse Ox 100% on R/A; cc3 03/04 21:10 Body Mass Index 23.41 (58.06 kg, 157.48 cm) ca1 MDM: 03/04 21:09 Patient medically screened. [facility] 03/05 00:14 Data reviewed: vital signs, nurses notes. Data interpreted: Pulse oximetry: on room air snw is 100 %. Interpretation: normal. Counseling: I had a detailed discussion with the patient and/or guardian regarding: the historical points, exam findings, and any diagnostic results supporting the discharge/admit diagnosis, lab results, the need for outpatient follow up, to return to the emergency department if symptoms worsen or persist or if there are any questions or concerns that arise at home. Special discussion: Based on the history and exam findings, there is no indication for further emergent testing or inpatient evaluation. I discussed with the patient/guardian the need to see the OB Gyne specialist for further evaluation of the symptoms. I discussed with the patient/guardian the need to see the primary care provider for further evaluation of the symptoms. 03/04 21:11 Order name: Basic Metabolic Panel on license of [facility] 03/04 21:11 Order name: CBC with Diff on license of [facility] 03/04 21:11 Order name: Blood Culture Adult (2) on license of [facility] 03/04 21:28 Order name: Urine Dipstick--Ancillary (enter results); Complete Time: 21:53 [facility] 03/04 21:11 Order name: Labs collected and sent; Complete Time: 21:38 on license of [facility] 03/04 21:28 Order name: Urine --Ancillary (enter results); Complete Time: 21:53 [facility] 03/04 21:11 Order name: Urine Dipstick-Ancillary (obtain specimen); Complete Time: 21:19 on license of [facility] 03/04 22:01 Order name: FHT's; Complete Time: 22:51 snw Administered Medications: 03/04 21:30 Drug: NS 0.9% 1000 ml Route: IV; Rate: 1 bolus; Site: right antecubital; ca1 22:45 Follow up: Response: No adverse reaction; IV Status: Completed infusion; IV Intake: cc3 1000ml 22:30 Drug: Rocephin 1 grams Route: IV; Rate: calculated rate; Site: right antecubital; cc3 22:45 Follow up: Response: No adverse reaction; IV Status: Completed infusion; IV Intake: [id number] 22:40 Drug: Tylenol 1000 mg Route: PO; cc3 23:30 Follow up: Response: No adverse reaction; Pain is decreased cc3 03/05 00:20 Drug: fentaNYL (PF) 25 mcg Route: IVP; Site: right antecubital; cc3 00:40 Follow up: Response: No adverse reaction; Pain is decreased cc3 Disposition: 07:18 Co-signature as Attending Physician, Juan C Mackey MD I agree with the assessment and july plan of care. Disposition: 03/05/19 00:07 Discharged to Home. Impression: Urinary tract infection, site not specified, state. - Condition is Stable. - Discharge Instructions: Flank Pain, Adult, and Anemia, and Urinary Tract Infection, Rehydration, Adult. - Prescriptions for promethazine 25 mg Oral Tablet - take 1 tablet by ORAL route every 6 hours As needed; 10 tablet. Augmentin 875- 125 mg Oral Tablet - take 1 tablet by ORAL route every 12 hours for 10 days; 20 tablet. Vitamin 27- 0.8 mg Oral Tablet - take 1 tablet by ORAL route once daily; 30 tablet. - Work release form, Medication Reconciliation Form, Thank You Letter, Antibiotic Education, Prescription Opioid Use form. - Follow up: Private Physician; When: 1 - 2 days; Reason: Recheck today's complaints, Continuance of care, Re-evaluation by your physician. Follow up: Emergency Department; When: As needed; Reason: Worsening of condition. Signatures: Dispatcher [employer] Juan C Murray MD MD cha Therrien, Shelly, VISUAL COORDINATOR-C VISUAL COORDINATOR-Csnw Dasha Dolan cc3 Laura Leung, RN RN ca1 Corrections: (The following items were deleted from the chart) 03/04 22:00 21:59 Constitutional: This is a well developed, well nourished patient who is awake, snw alert, and in no acute distress. Eyes: Pupils equal round and reactive to light, extra-ocular motions intact. Lids and lashes normal. Conjunctiva and sclera are non-icteric and not injected. Cornea within normal limits. Periorbital areas with no swelling, redness, or edema. ENT: Nares patent. No nasal discharge, no septal abnormalities noted. Tympanic membranes are normal and external auditory canals are clear. Oropharynx with no redness, swelling, or masses, exudates, or evidence of obstruction, uvula midline. Mucous membranes moist. Neck: Trachea midline, no thyromegaly or masses palpated, and no cervical lymphadenopathy. Supple, full range of motion without nuchal rigidity, or vertebral point tenderness. No Meningismus. Chest/axilla: Normal chest wall appearance and motion. Nontender with no deformity. No lesions are appreciated. Cardiovascular: Regular rate and rhythm with a normal S1 and S2. No gallops, murmurs, or rubs. Normal PMI, no JVD. No pulse deficits. Respiratory: Lungs have equal breath sounds bilaterally, clear to auscultation and percussion. No rales, rhonchi or wheezes noted. No increased work of breathing, no retractions or nasal flaring. Abdomen/GI: Soft, non-tender, with normal bowel sounds. No distension or tympany. No guarding or rebound. No evidence of tenderness throughout. Back: No spinal tenderness. No costovertebral tenderness. Full range of motion. Skin: Warm, dry with normal turgor. Normal color with no rashes, no lesions, and no evidence of cellulitis. MS/ Extremity: Pulses equal, no cyanosis. Neurovascular intact. Full, normal range of motion. Neuro: Awake and alert, GCS 15, oriented to person, place, time, and situation. Cranial nerves II-XII grossly intact. Motor strength 5/5 in all extremities. Sensory grossly intact. Cerebellar exam normal. Normal gait. snw 22:00 21:59 Head/face: Noted is a laceration(s), that is linear, 2.5 cm(s), of the forehead, snw snw 03/05 00:10 03/04 21:10 Allergies: No Known Allergies; ca1 ca1 03/05 00:12 00:10 Allergies: CEPHALOSPORINS; ca1 ca1 00:42 00:07 03/05/2019 00:07 Discharged to Home. Impression: Urinary tract infection, site cc3 not specified; state. Condition is Stable. Forms are Medication Reconciliation Form, Thank You Letter, Antibiotic Education, Prescription Opioid Use. Follow up: Private Physician; When: 1 - 2 days; Reason: Recheck today's complaints, Continuance of care, Re-evaluation by your physician. Follow up: Emergency Department; When: As needed; Reason: Worsening of condition. snw
[2019-03-05] MEDS ORDERED: FENTANYL CITR 100 MCG/2 ML ONE (00:46)
[2019-03-05 02:26] VITALS: BP 104/60; O2SAT 100
== END 2019-03-05 00:42 | disposition home or self-care (01) ==
LOC: ER 21:39
DX: O23.40 Unspecified infection of urinary tract in pregnancy, unspecified trimester (principal); Z3A.00 Weeks of gestation of pregnancy not specified
CPT/HCPCS: 81003; 81025; 87040; 96361; 96374; 96375; 99284; J3010

== ENCOUNTER 2024-05-09 09:28 | Emergency (ER) | payer SELFPAY ==
--- NOTE | 2024-05-09 10:37 | RAD REPORT ---
EXAM DESCRIPTION: RAD - Chest Single View - 05/09/2024 10:31 am CLINICAL HISTORY: COUGH COMPARISON: No comparisons FINDINGS: Lines: None. Lungs: No evidence of edema or pneumonia. Pleural: No significant pleural effusions or pneumothorax. Cardiac: The heart size is within normal limits. Mediastinum: Within normal limits. Bones: No acute fractures. Other: None IMPRESSION: No acute cardiopulmonary disease.
[2024-05-09] MEDS ORDERED: KETOROLAC 30 MG/ML INJ ONE (11:14)
[2024-05-09] MEDS ORDERED: ONDANSETRON 4 MG (ODT) TAB ONE (11:15)
--- NOTE | 2024-05-09 11:55 | ER ---
Nurse's Notes [facility] Name: Umu Nieto Age: 23 yrs Sex: Female : 2000 Arrival Date: 05/09/2024 Time: 09:28 Bed 12 Private MD: Diagnosis: COVID-19 Presentation: 05/09 09:54 Chief complaint: Patient states: she tested positive for COVID approx one week ago, and ap3 is still "feeling bad". patient reports continued cough, congestion, fever, nausea, body aches, stomach cramps and migraines. patient currently rates her pain as a 4/10 on the pain scale. Coronavirus screen: Client presents with at least one sign or symptom that may indicate coronavirus-19. Ebola Screen: No symptoms or risks identified at this time. Initial Sepsis Screen: Does the patient meet any 2 criteria? No. Patient's initial sepsis screen is negative. Does the patient have a suspected source of infection? No. Patient's initial sepsis screen is negative. Risk Assessment: Do you want to hurt yourself or someone else? Patient reports no desire to harm self or others. Onset of symptoms is unknown. 09:54 Method Of Arrival: Ambulatory ap3 09:54 Acuity: SIMON 4 ap3 Triage Assessment: 09:56 General: Appears in no apparent distress. Behavior is calm, cooperative, appropriate ap3 for age, Reports fever for feeling ill for fatigue for. Pain: Complains of pain in generalized body aches. Neuro: Level of Consciousness is awake, alert, obeys commands, Oriented to person, place, time, situation, Appropriate for age. Cardiovascular: Patient's skin is warm and dry. Respiratory: Airway is patent Respiratory effort is even, unlabored, Respiratory pattern is regular, symmetrical. GI: Reports nausea. 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 - Infectious Disease History:: Denies. - Social history:: Smoking status: Reported history of juuling and/or vaping. - Family history:: not pertinent. Screenin:56 [facility] ED Fall Risk Assessment (Adult) History of falling in the last 3 months, ap3 including since admission No falls in past 3 months (0 pts) Confusion or Disorientation No (0 pts) Intoxicated or Sedated No (0 pts) Impaired Gait No (0 pts) Mobility Assist Device Used No (0 pt) Altered Elimination No (0 pt) Score/Fall Risk Level 0 - 2 = Low Risk Oriented to surroundings, Maintained a safe environment, Educated pt \\T\\ family on fall prevention, incl call for assistance when getting out of bed, Assessed \\T\\ reinforced patient's understanding of fall precautions, Provided non-skid footwear, Hourly rounding (assess needs \\T\\ fall precautionary measures) done, Used ambulatory aids as needed (educated on \\T\\ assisted with), Used gait belt as appropriate. Abuse screen: Denies threats or abuse. Nutritional screening: No deficits noted. Tuberculosis screening: No symptoms or risk factors identified. Assessment: 12:05 General: Appears comfortable, ill, well groomed, well developed, well nourished, me1 Behavior is calm, cooperative, appropriate for age, Reports she tested positive for COVID approx one week ago, and is still "feeling bad". patient reports continued cough, congestion, fever, nausea, body aches, stomach cramps and migraines. patient currently rates her pain as a 4/10 on the pain scale. Pain: Complains of pain in head Pain does not radiate. Pain currently is 2 out of 10 on a pain scale. Quality of pain is described as aching, Pain began gradually, Is continuous. Neuro: Level of Consciousness is awake, alert, obeys commands, Oriented to person, place, time, situation, Appropriate for age. Cardiovascular: Patient's skin is warm and dry. Respiratory: Reports cough that is congestion Airway is patent Respiratory effort is even, unlabored, Respiratory pattern is regular, symmetrical. GI: Reports cramping, nausea. : No signs and/or symptoms were reported regarding the genitourinary system. EENT: No signs and/or symptoms were reported regarding the EENT system. Derm: Skin is intact, is healthy with good turgor, Skin is pink, warm \\T\\ dry. Musculoskeletal: No signs and/or symptoms reported regarding the musculoskeletal system. Vital Signs: 09:54 BP 108 / 58; Pulse 70; Resp 17; Temp 98.4; Pulse Ox 100% on R/A; Weight 56.7 kg; Height ap3 5 ft. 2 in. ; Pain 4/10; 12:05 BP 111 / 56; Pulse 68; Resp 15; Temp 98.1; Pulse Ox 100% on R/A; me1 09:54 Body Mass Index 22.86 (56.70 kg, 157.48 cm) ap3 09:54 Pain Scale: Adult ap3 ED Course: 09:34 Patient arrived in ED. mg5 09:55 Triage completed. ap3 09:57 Arm band placed on right wrist. ap3 09:57 Provided Education on: fall risk education. ap3 10:09 Jameel Cuellar MD is Attending Physician. rt 10:33 Chest Single View XRAY In Process Unspecified. EDMS 11:21 Lien Brock RN is Primary Nurse. ap3 12:05 Patient has correct armband on for positive identification. Bed in low position. Call me1 light in reach. Side rails up X 1. 12:05 No provider procedures requiring assistance completed. Patient did not have IV access me1 during this emergency room visit. Administered Medications: 11:21 Drug: Ketorolac IM 30 mg IM once Route: IM; Site: right vastus lateralis; ap3 12:27 Follow up: Response: No adverse reaction; Pain is decreased me1 11:21 Drug: Ondansetron Oral Disintegrating Tablet Oral Disintegrating Tablet 4 mg PO once ap3 Route: PO; 12:27 Follow up: Response: No adverse reaction; Nausea is decreased me1 Medication: 12:05 VIS not applicable for this client. me1 Outcome: 11:55 Discharge ordered by . rt 12:27 Discharged to home with significant other, me1 12:27 Condition: stable 12:27 Discharge instructions given to patient, significant other, Instructed on discharge instructions, follow up and referral plans. medication usage, Demonstrated understanding of instructions, follow-up care, medications, Prescriptions given X 1, 12:28 Patient left the ED. me1 Signatures: Dispatcher [employer] EDMS Lien Brock RN RN ap3 Jameel Cuellar MD MD rt Sara Lora RN RN me1 Kristy Moore mg5 Corrections: (The following items were deleted from the chart) 12:23 09:54 Chief complaint: Patient states: she tested positive for COVID approx one week me1 ago, and is still "feeling bad". patient reports continued cough, congestion, fever, nausea, body aches, stomach cramps and migraines. patient currently rates her pain as a 4/10 on the pain scale ap3
--- NOTE | 2024-05-09 11:56 | EDPHYS ---
Physician Documentation [facility] Name: Umu Nieto Age: 23 yrs Sex: Female : 2000 Arrival Date: 05/09/2024 Time: 09:28 Bed 12 Private MD: ED Physician Jameel Cuellar HPI: 05/09 10:42 This 23 yrs old Female presents to ER via Ambulatory with complaints of Covid. rt 10:42 Patient was tested positive for COVID about 1 week ago. Patient states that she rt continues to have bodyaches, nausea, headaches. States headaches has improved. She gets relief with Tylenol, not ibuprofen. She denies other acute complaints at this time, symptoms are moderate severity, no other aggravating alleviating factors.. 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 - Infectious Disease History:: Denies. - Social history:: Smoking status: Reported history of juuling and/or vaping. - Family history:: not pertinent. ROS: 10:42 Back: Negative for injury and pain, : Negative for injury, bleeding, discharge, and rt swelling, MS/Extremity: Negative for injury and deformity, 10:42 Constitutional: Positive for body aches, malaise, 10:42 Respiratory: Positive for cough, Negative for shortness of breath, 10:42 Abdomen/GI: Positive for nausea and vomiting, Exam: 10:42 Constitutional: This is a well developed, well nourished patient who is awake, alert, rt and in no acute distress. Head/Face: Normocephalic, atraumatic. Chest/axilla: Normal chest wall appearance and motion. Nontender with no deformity. No lesions are appreciated. Cardiovascular: Regular rate and rhythm with a normal S1 and S2. No gallops, murmurs, or rubs. Normal PMI, no JVD. No pulse deficits. Respiratory: Lungs have equal breath sounds bilaterally, clear to auscultation and percussion. No rales, rhonchi or wheezes noted. No increased work of breathing, no retractions or nasal flaring. Abdomen/GI: Soft, non-tender, with normal bowel sounds. No distension or tympany. No guarding or rebound. No evidence of tenderness throughout. Skin: Warm, dry with normal turgor. Normal color with no rashes, no lesions, and no evidence of cellulitis. MS/ Extremity: Pulses equal, no cyanosis. Neurovascular intact. Full, normal range of motion. Neuro: Awake and alert, GCS 15, oriented to person, place, time, and situation. Cranial nerves II-XII grossly intact. Motor strength 5/5 in all extremities. Sensory grossly intact. Cerebellar exam normal. Normal gait. Vital Signs: 09:54 BP 108 / 58; Pulse 70; Resp 17; Temp 98.4; Pulse Ox 100% on R/A; Weight 56.7 kg; Height ap3 5 ft. 2 in. ; Pain 4/10; 12:05 BP 111 / 56; Pulse 68; Resp 15; Temp 98.1; Pulse Ox 100% on R/A; me1 09:54 Body Mass Index 22.86 (56.70 kg, 157.48 cm) ap3 09:54 Pain Scale: Adult ap3 MDM: 10:10 Patient medically screened. rt 14:59 Differential Diagnosis Pneumonia, COVID, viral syndrome. Data reviewed: vital signs, rt nurses notes, radiologic studies. Independent interpretation of the following test(s) in the Emergency Department X-Ray: My interpretation is No pneumonia seen on interpretation of x-ray images. Counseling: I had a detailed discussion with the patient and/or guardian regarding the historical points, exam findings, and any diagnostic results supporting the discharge/admit diagnosis, radiology results, the need for outpatient follow up. Response to treatment: the patient's symptoms have markedly improved after treatment. 05/09 10:16 Order name: Chest Single View XRAY; Complete Time: 10:38 rt Administered Medications: 11:21 Drug: Ketorolac IM 30 mg IM once Route: IM; Site: right vastus lateralis; ap3 12:27 Follow up: Response: No adverse reaction; Pain is decreased me1 11:21 Drug: Ondansetron Oral Disintegrating Tablet Oral Disintegrating Tablet 4 mg PO once ap3 Route: PO; 12:27 Follow up: Response: No adverse reaction; Nausea is decreased me1 Disposition Summary: 05/09/24 11:55 Discharge Ordered Notes: Location: Home rt Problem: new rt Symptoms: have improved rt Condition: Stable rt Diagnosis - COVID-19 rt Followup: rt - With: Private Physician - When: 2 - 3 days - Reason: Discharge Instructions: - Discharge Summary Sheet rt - COVID-19 rt Forms: - Medication Reconciliation Form rt - Antibiotic Education rt - Prescription Opioid Use rt - Patient Portal Instructions rt - Leadership Thank You Letter rt - Work release form me1 Prescriptions: - ondansetron 4 mg Oral Tablet,disintegrating - take 1 tablet ORAL route every 6 hours; 15 tablet; Refills: 0, Product rt Selection Permitted Signatures: Dispatcher [employer] Lien Chirinos RN RN ap3 Jameel Cuellar MD MD rt Sara Lora RN me1 Corrections: (The following items were deleted from the chart) 10:16 10:16 Chest Single View+[email or web address] ordered. EDWI EDMS
[2024-05-09 12:39] VITALS: O2SAT 100
[2024-05-09 12:44] VITALS: BP 111/56; TEMP 98.1
== END 2024-05-09 12:28 | disposition home or self-care (01) ==
LOC: ER 09:28
DX: U07.1 COVID-19 (principal)
CPT/HCPCS: 71045; Q0162